=== PATIENT | female | born 1995 | race Caucasian/White ===

== ENCOUNTER → 2019-09-12 | Outpatient (CLI) | payer OTHER ==
[2019-09-12 10:48] LABS: ALBUMIN 3.6 g/dL (3.4-5.0); ALBUMIN/GLOBULIN RATIO 0.9 (1.0-1.7); CALCIUM 8.7 mg/dL (8.5-10.1); CREATININE 0.8 mg/dL (0.6-1.0); GFR 88.9; POTASSIUM 3.9 mmol/L (3.5-5.1); TOTAL BILIRUBIN 0.2 mg/dL (0.2-1.0); TOTAL PROTEIN 7.4 g/dL (6.4-8.2)
[2019-09-13 00:08] LABS: ESTRADIOL LEVEL 43.2 pg/mL (.); FSH 5.3 mIU/mL (.); LUTEINIZING HORMONE 18.6 mIU/mL (.); PROGESTERONE 0.3 ng/mL (.); PROLACTIN 17.5 ng/mL (4.8-23.3)
[2019-09-13 10:11] LABS: INSULIN LEVEL 6.3 uIU/mL (2.6-24.9)
[2019-09-15 11:09] LABS: TESTOSTERONE FREE 0.32 ng/dL (0.10-0.85)
== END | disposition home or self-care (01) ==
LOC: LAB 10:01
PROVIDERS: ATTEND Nurse Practitioner Women's Health
DX: N91.1 Secondary amenorrhea (principal)
CPT/HCPCS: 36415; 80053; 82627; 82670; 83001; 83002; 83036; 83525; 84144; 84146; 84402; 84403; 84443; 84702

== ENCOUNTER → 2019-12-06 | Outpatient (CLI) | payer OTHER ==
[~2019-12-06] MED LIST: VENL37.5 PO
== END | disposition home or self-care (01) ==
LOC: SPEC 12:28
PROVIDERS: ATTEND Obstetrics & Gynecology
DX: Z11.3 Encounter for screening for infections with a predominantly sexual mode of transmission (principal); N89.8 Other specified noninflammatory disorders of vagina

== ENCOUNTER → 2019-12-30 | Outpatient (CLI) | payer OTHER | END | disposition home or self-care (01) | LOC: LAB 14:06 | PROVIDERS: ATTEND Obstetrics & Gynecology | DX: Z11.59 Encounter for screening for other viral diseases (principal) | CPT/HCPCS: U0003-CS ==

== ENCOUNTER 2020-01-02 06:57 | Day surgery (SDC) | payer OTHER ==
[~2020-01-02] VITALS: Ht 172.7 cm; Wt 157.4 kg
[2020-01-02] MEDS ORDERED: HYDROmorphone 2 MG/ML VIAL IV PRN (07:00)
[2020-01-02] MEDS ORDERED: ONDANSETRON PF 4 MG/2 ML VIAL. IV PRN (07:00)
[2020-01-02] MEDS ORDERED: IV RINGERS,LACTATED 1000ML 1,000 ML IV SCH (07:00)
[2020-01-02] MEDS ORDERED: fentaNYL PF VIAL 100 MCG/2 ML VIAL IV PRN (07:00)
[2020-01-02] MEDS ORDERED: PROCHLORPERAZINE 10 MG/2 ML VIAL. IV PRN (07:00)
[2020-01-02] MEDS ORDERED: VENL37.5 PO (07:23)
[2020-01-02] MEDS ORDERED: BUPIVACAINE-EPI 0.5%-1:200000 MPF 30 ML VIAL. ONE (07:23)
[2020-01-02] MEDS ORDERED: METHYLENE BLUE 0.5% 10ml AMPULE. ONE (07:24)
[2020-01-02] MEDS ORDERED: 0.9 % SODIUM CHLORIDE 20 ML VIAL. IJ ONE (07:24)
[2020-01-02 07:32] LABS: BASO % 1 % (0-3); EOS # 0.2 x10^3/uL (0.0-0.7); EOS % 2 % (0-3); HEMOGLOBIN 14.2 g/dL (12.0-15.5); LYMPH # 3.6 x10^3/uL (1.0-4.8); LYMPH % 40 % (24-48); MEAN CORPUSCULAR HEMOGLOBIN 30 pg (25-35); MEAN CORPUSCULAR HGB CONC 34 g/dL (31-37); MEAN CORPUSCULAR VOLUME 87 fL (79-100); MONO # 0.6 x10^3/uL (0.0-1.1); MONO % 6 % (0-9); NEUT # 4.6 x10^3/uL (1.8-7.7); NEUT % 51 % (31-73); PLATELET COUNT 245 x10^3/uL (140-400); RED BLOOD COUNT 4.81 x10^6/uL (3.50-5.40); RED CELL DISTRIBUTION WIDTH 13.3 % (11.5-14.5); WHITE BLOOD COUNT 8.9 x10^3/uL (4.0-11.0)
[2020-01-02] MEDS ORDERED: PROPOFOL 10 MG/ML (20ML) VIAL. IV ONE (08:05)
[2020-01-02] MEDS ORDERED: LIDOCAINE 2% PF 5 ML VIAL. ONE (08:05)
[2020-01-02] MEDS ORDERED: DEXAMETHASONE SOD PHOS 4 MG/ML VIAL ONE (08:05)
[2020-01-02] MEDS ORDERED: ONDANSETRON PF 4 MG/2 ML VIAL. ONE (08:05)
[2020-01-02] MEDS ORDERED: ROCURONIUM 50 MG/5 ML VIAL. ONE (08:06)
[2020-01-02] MEDS ORDERED: MIDAZOLAM HCL/PF 2 MG/2 ML VIAL. ONE (08:07)
[2020-01-02] MEDS ORDERED: fentaNYL PF VIAL 100 MCG/2 ML VIAL ONE ×3 (08:07→11:15)
[2020-01-02] MEDS ORDERED: NEOSTIGMINE METHYLSULFATE 5 MG/5 ML SYRINGE. ONE (08:55)
[2020-01-02] MEDS ORDERED: SEVOFLURANE 61 TO 120 MINUTES. IH ONE (10:20)
[2020-01-02] MEDS ORDERED: ePHEDrine PF IN SALINE 50 MG/10 ML SYRINGE. IV ONE (10:23)
--- NOTE | 2020-01-02 10:44 | PDOC ---
BRIEF OPERATIVE NOTE Date: Jan 02, 2020 Pre-Op Diagnosis pelvic pain, right mass on ovary Post-Op Diagnosis same but bilateral dermoids of ovaries and pelvic adhesions and cervical stenosis Procedure Performed operative scope, lysis of adhesions, bilateral ovarian cystectomy of dermoids and vapo endometriosis and chromotubation Surgeon Dr. Marion Sood Straight Knife Machine Cutter DAVID Lord Anesthesiologist Dr. Hardin Anesthesia Type: General Blood Loss 50cc IV Fluid 1L Urine Output straight cath prior 50cc Specimens Obtained right and left ovarian cystectomies of bilateral dermoids Findings cervical stenosis would not even admit the uterine manipulator, incidential small posterior uterine perforation with the valchez tip, normal bilateral tubes, enlarged cystic bilateral ovaries; both right and left sided adhesions left upper above IP taken down and pelvic desc sigmoid stuck to pelvic sidewall near ureter; right side stuck near appendix taken down and normal appendix identified; normal RUQ Complications incidential uterine perf with tip of uterine manipulator on post ADRIANNE Operative Note [id number] MARION SOOD MD Jan 02, 2020 10:44
[2020-01-02] MEDS ORDERED: MAG HYDROX/ALUMINUM HYD/SIMETH 30 ML ORAL.SUSP PO PRN (10:45)
[2020-01-02] MEDS ORDERED: SIMETHICONE 80 MG TAB.CHEW PO PRN (10:45)
[2020-01-02] MEDS ORDERED: NALOXONE 0.4 MG/ML VIAL. IV PRN (10:45)
[2020-01-02] MEDS ORDERED: 0.9 % SODIUM CHLORIDE 10 ML DISP.SYRIN. IV PRN (10:45)
[2020-01-02] MEDS ORDERED: HYDROcodone/APAP 5/325MG 1 TAB TABLET PO PRN (10:45)
[2020-01-02] MEDS ORDERED: diphenhydrAMINE HCL 25 MG CAPSULE PO PRN (10:45)
[2020-01-02] MEDS ORDERED: CALCIUM CARBONATE 500 MG TAB.CHEW PO PRN (10:45)
[2020-01-02] MEDS ORDERED: diphenhydrAMINE 50 MG/ML VIAL IV PRN (10:45)
[2020-01-02] MEDS: fentaNYL PF VIAL 100 MCG/2 ML VIAL IV PRN ×2 (11:20→11:53)
[2020-01-02] MEDS ORDERED: HYDROcodone/APAP 5/325MG 1 TAB TABLET PO ONE (12:00)
[2020-01-02] MEDS ORDERED: MORPHINE SULFATE 2 MG/ML VIAL. ONE (12:10)
[2020-01-02] MEDS: MORPHINE SULFATE 2 MG/ML VIAL. IV PRN ×2 (12:13→12:28)
[2020-01-02 12:40] VITALS: BP 136/67
--- NOTE | 2020-01-02 13:38 | OP ---
DATE OF SURGERY: 01/02/2020 PREOPERATIVE DIAGNOSES: Pelvic pain and a mass on the right ovary on sonogram, 4.4 cm. POSTOPERATIVE DIAGNOSES: Pelvic pain and a mass on the right ovary on sonogram, 4.4 cm, with bilateral dermoid cysts of the ovaries and pelvic adhesions and cervical stenosis. PROCEDURE: Operative laparoscopy, dilatation of the cervix, lysis of adhesions, bilateral ovarian cystectomy of dermoid, vaporization of endometriosis and attempted chromotubation. SURGEON: Ernesto Sood MD. SAMPLE CARRIER: DAVID Bailey. ANESTHESIOLOGIST: Hayden Hardin MD. ANESTHESIA: General. BLOOD LOSS: 50 mL. URINE OUTPUT: 50 mL straight cath prior to procedure. INTRAVENOUS FLUIDS: 1 liter of crystalloid. SPECIMEN: Right and left ovarian cystectomy of the bilateral dermoids. FINDINGS: Cervical stenosis, would not even admit the uterine manipulator, she had to be dilated with the smallest Hegar dilators, I was able to finally get in and admit the uterine manipulator. When we got in abdominally, there was an incidental posterior lower uterine segment perforation where we could see the tip of the manipulator that how small her uterus was. She had a very small uterus with cervical stenosis, normal bilateral tubes, normal right upper quadrant. She had adhesions in the right lower quadrant like where the appendix was that had to be taken down. Once those were taken down, I could visualize a normal appendix. She had adhesions of the left colon going down above the IP that I took down and then below the IP, it was pretty adhesed. I did not do it, it was right on the ureter on that left sidewall. She did have significant adhesions. A scant amount of endometriosis in the posterior cul-de-sac, bilaterally enlarged ovaries not just the right. COMPLICATIONS: Just the incidental uterine perforation that was not bleeding with the manipulator tip unfortunately; however, when we did the chromotubation, the methylene blue diluted in the saline wanted to come out of that opening instead of filling the tube, so we did not get an adequate chromotubation with the tubes due to the incidental uterine perforation, but no other complications. DESCRIPTION OF PROCEDURE: This patient was taken to the operating room where general anesthesia was placed. The patient was placed in a dorsal lithotomy position in [facility]. The patient's abdomen and vagina were prepped and draped in the normal sterile fashion and a straight cath urine had been done prior to my arrival. Upon my arrival, we did a timeout. Once everyone agreed on the patient, the site, the procedure, the antibiotics, we did proceed. A bivalve speculum was placed in the patient's vagina. A single-tooth tenaculum was used to grasp the anterior lip of the cervix. She had such cervical stenosis, I could not even admit the manipulator of dilators, I was able to start with the tiniest Hegar dilator, get it through and finally worked up and it did go in, so I put the uterine manipulator in and placed it on the single tooth tenaculum and the bivalve speculum was then removed. Top gloves were discarded and changed. Attention was then turned to the abdomen where a small infraumbilical skin incision was made with the scalpel. A curved Deborah was used to dissect through the subcuticular layer to the fascia. The 5 mm Visiport was used to directly into the abdominal cavity. Opening patient pressure was 3 mmHg. Carbon dioxide gas was used to then appropriately insufflate the abdominal cavity to maintain a pressure of 15 mmHg. Overhead lights were dimmed. The patient was placed in Trendelenburg position. At this point, a 5 mm suprapubic port was placed and that is how I found all the above findings. So at this point, it was decided to put in a right lower quadrant port as well, finding an area clear of any adhesions on the inside, transilluminating the abdominal wall, finding an area clear of any vasculature, making a small incision and placing the 5 mm disposable atraumatic trocar in under direct visualization without difficulty. The balloon cuff on the two 5s were insufflated. I did move the camera laterally and looked at the umbilical port, it too was good and it was insufflated. At this point, we started on the adhesiolysis. I did the right side and the left side, taking down the adhesion above the IP on both sides. I did find a normal appendix as well. The right side peeled down pretty easily near the appendix. The left side was kind of stuck, but I was able to use the blunt end of a probe to pull out the descending colon on that side and score the top of it and it peeled down nicely to the level of the IP. I freed up the entire left side. Going down through there, I was able to identify the ureter, but right under the ureter there were some significant adhesions in the pelvis as well. I did not do those. There was some faint red dots in the posterior cul-de-sac. Those were cauterized with the monopolar tip for the endometriosis and then I did a left ovarian cystectomy, opened it up with the monopolar tip, was able to peel it out. I got the cyst out and just as I was peeling it out in total, a little bit of cheese came out, but I was able to pull it through the 10 port intact, they opened it up on the side and they did have hair consistent with a dermoid, so I did copious irrigation to rinse out that kind of cheesy material on the left. Once the cyst wall was completely cleared out, I left that alone and then we went to the right side. It was also scored. They were sent for separate pathology specimens. I opened it up and peeled it. This one unfortunately did burst, but I was able to take it out in pieces and a large piece did come out intact through the 10 port, but I did take it out and then I did copious irrigation to rinse all the debris out as well. Once this was done and that cyst wall was clear, I irrigated again. All fluid was clear. There was nothing left behind. The cul-de-sac was dry. The endometriosis had been done, the bladder looked good, the uterus looked good. Before we did anything else, I did attempt to chromotubation. The blue dye did go in easily, but it came out that small pinpoint opening in the posterior lower uterine segment of the uterus. So the tubes did not fill and spill appropriately as it could not maintain a pressure with the opening in the uterus, so we did not get to actually test the tubes unfortunately with the cervical stenosis and small perforation. So, the methylene blue was then rinsed out copiously. Everything was dry. Both ovaries looked okay. So at this point, Kemi was obtained and I put Kemi on the cyst wall of both bilateral ovaries. Once that was done, all 3 of the trocars, the air was released out of the trocar cuff. The 5 mm port was taken out under direct visualization, it was hemostatic. The suprapubic port was taken out. The gas was further released from the umbilical port and it was removed as well. 0 Vicryl was used on the fascia at the suprapubic port for the 10/12 port and then all three port sites were closed with 4-0 nylon at the skin and injected with local. The bottom instruments were removed and the patient was awakened from anesthesia and brought to recovery room in stable condition. ERNESTO SOOD MD DR: PACHECO/chrissie JOB#: [id number] / [id number]
--- NOTE | 2020-01-06 17:06 | PATHOLOGY ---
[facility] Accession Number: [id number] . 01 Material submitted: . PART A: ovary - LEFT OVARIAN CYST DERMOID. Modifiers: left PART B: ovary - RIGHT OVARIAN CYST DERMOID. Modifiers: right . 01 Clinical history: . Ovarian mass . 02 Diagnosis: A. Segments of ovarian tissue, left ovarian cyst removal: - Mature cystic teratoma (dermoid cyst). - Small cystic follicles. . B. Segments of ovarian tissue, right ovarian cyst removal: - Mature cystic teratoma (dermoid cyst). - Small cystic follicles. LBQ 01/06/2020 1406 Local . 02 Comment: There is no atypia or evidence of malignancy (JPM/db; 01/06/2020) . 02 Electronically signed: . Tab Yan MD, Pathologist NPI- [id number] . 01 Gross description: . A. The specimen is received in formalin, labeled "Lis Strukel, left ovarian dermoid cyst". Received are multiple segments of pale zavala to pink-chan tissue measuring 3.5 x 2.8 x 1.1 cm in aggregate dimensions. Sectioning through one segment reveals a unilocular cystic structure measuring 1.5 cm filled with light zavala friable to clear mucoid material. The specimen is submitted representatively in cassettes A1 and A2. . B. The specimen is received in formalin, labeled "Lis Strukel, right ovarian dermoid cyst". Received are multiple segments of pink-zavala to pink-chan tissue with adherent hair measuring 4.8 x 2.0 x 1.5 cm in aggregate dimensions. The specimen is submitted representatively in cassettes B1 and B2. (CAA; 01/02/2020) QAC/QAC 01/02/2020 1849 Local . 02 Pathologist provided ICD-10: D27.1, D27.0 . 02 CPT . 998420, [id number] Specimen Comment: A courtesy copy of this report has been sent to [phone], [phone] Specimen Comment: [id number] Specimen Comment: Report sent to / DR WILLS Performed at: 01 [facility] [address], [place] [id number] MD Scotty Martins MD Phone: [phone] Performed at: 02 [facility] [address] [place], [place] [id number] MD Tab Yan MD Phone: [phone]
== END 2020-01-02 13:05 | disposition home or self-care (01) ==
LOC: SURG 06:57
PROVIDERS: ATTEND Obstetrics & Gynecology
DX: D27.1 Benign neoplasm of left ovary (principal); D27.0 Benign neoplasm of right ovary; N83.8 Other noninflammatory disorders of ovary, fallopian tube and broad ligament; F41.9 Anxiety disorder, unspecified; Z87.891 Personal history of nicotine dependence; Z98.890 Other specified postprocedural states; Z72.89 Other problems related to lifestyle
CPT/HCPCS: 36415; 58662; 81025; 85025; 88305; A7015; J0690; J1100; J2250; J2270; J2405; J2704; J2710; J3010; J7030; J7120; Q9968

== ENCOUNTER → 2020-04-13 | Outpatient (CLI) | payer OTHER | LOC: LAB 07:44 | PROVIDERS: ATTEND Obstetrics & Gynecology | DX: Z34.90 Encounter for supervision of normal pregnancy, unspecified, unspecified trimester (principal); Z3A.00 Weeks of gestation of pregnancy not specified | CPT/HCPCS: 36415; 84702 ==

== ENCOUNTER → 2020-04-14 | Outpatient (CLI) | payer OTHER ==
[~2020-04-14] MED LIST changes: +CONTRAST GIVEN. MC PRN; +IOHEXOL 180 MG/ML 10 ML VIAL. INT UTERIN ONE
--- NOTE | 2020-04-14 13:44 | KCIC ---
Hysterosalpingogram HISTORY: Infertility COMPARISON: None TECHNIQUE: Patient was informed of the risks to include pain, infection, bleeding, allergic reaction. All questions were answered. Patient signed a written consent form for hysterosalpingogram. Patient was placed in a supine position on the fluoroscopy table. External skin surface was cleansed with Betadine solution. Speculum was inserted. Cervix was cleansed with Betadine solution. HSG catheter was inserted and secured with balloon inflation. Contrast was injected during fluoroscopic visualization, 8 cc of Omnipaque 180. The balloon was deflated and catheter removed. Speculum was removed. There were no immediate complications. FINDINGS: No focal filling defect is identified of the uterus. Both fallopian tubes are patent. Cervix is patent. There are likely phleboliths in the bilateral pelvis. Fluoroscopy time: 23 seconds, 6 images. IMPRESSION: 1. Both fallopian tubes are patent. Electronically signed by: Campbell Duncan MD (04/14/2020 1:41 PM) [id number]
== END ==
LOC: KCIC 12:33
PROVIDERS: ATTEND Obstetrics & Gynecology
DX: Z31.69 Encounter for other general counseling and advice on procreation (principal); I10 Essential (primary) hypertension; N83.201 Unspecified ovarian cyst, right side
CPT/HCPCS: 58340; 74740; Q9965

== ENCOUNTER → 2020-06-29 | Outpatient (CLI) | payer OTHER ==
[~2020-06-29] MED LIST changes: -CONTRAST GIVEN. MC PRN; -IOHEXOL 180 MG/ML 10 ML VIAL. INT UTERIN ONE
== END ==
LOC: LAB 07:28
PROVIDERS: ATTEND Obstetrics & Gynecology
DX: N92.6 Irregular menstruation, unspecified (principal)
CPT/HCPCS: 36415; 84144

== ENCOUNTER → 2020-08-29 | Outpatient (CLI) | payer OTHER | LOC: LAB 16:57 | PROVIDERS: ATTEND Internal Medicine Pulmonary Disease | DX: U07.1 COVID-19 (principal); R06.02 Shortness of breath; R51.9 Headache, unspecified; R11.2 Nausea with vomiting, unspecified; R09.81 Nasal congestion; J02.9 Acute pharyngitis, unspecified; R53.81 Other malaise | CPT/HCPCS: U0003 ==